=== PATIENT | male | born 1965 | race African-American/Black ===

== ENCOUNTER 2019-09-26 21:54 | Inpatient (IN) | payer SELFPAY ==
[~2019-09-26] VITALS: Ht 172.7 cm; Wt 98.1 kg
[2019-09-26] MEDS ORDERED: SODIUM CHLORIDE 0.9% 1,000 ML IV ONE (22:32)
[2019-09-26] MEDS ORDERED: LABETALOL 5MG/ML SYR 20 MG/4 ML SYRINGE IV ONE (22:45)
[2019-09-26 23:06] LABS: BASOPHILS % 0.6 % (0.0-2.0); EOSINOPHILS % 0.2 % (0.0-5.0); HEMOGLOBIN. 16.8 g/dL (14.0-18.0); LYMPHOCYTES % 29.5 % (20.0-50.0); MEAN CORPUSCULAR HEMOGLOBIN 28.7 pg (28.0-32.0); MEAN CORPUSCULAR VOLUME 83.7 fL (80.0-94.0); MEAN PLATELET VOLUME 8.6 fl (7.4-10.4); MONOCYTES % 13.4 % (2.0-8.0); NEUTROPHILS % 56.3 % (40.0-76.0); PARTIAL THROMBOPLASTIN TIME 26.2 sec (23.4-31.0); PLATELET 290 x1000/uL (130-400); PROTHROMBIN TIME 10.7 sec (9.6-11.0); RED BLOOD CELL COUNT 5.86 mill/uL (4.7-6.1); RED CELL DISTRIBUTION WIDTH 15.7 % (11.6-14.6)
[2019-09-26] MEDS ORDERED: NICARDIPINE 50 MG in SODIUM CHLORIDE 0.9% 230 ML IV STA (23:12)
[2019-09-26] MEDS ORDERED: LEVETIRACETAM 500MG PREMIX 100 ML IV ONE (23:15)
[2019-09-26] MEDS ORDERED: DEXAMETHASONE 10 MG/ML VIAL IV ONE (23:15)
[2019-09-26] MEDS ORDERED: NICARDIPINE 40MG/200ML PREMIX 200 ML IV PRN (23:30)
[2019-09-26 23:43] LABS: CHLORIDE 103 mEq/L (98-107)
[2019-09-26 23:47] LABS: ETHANOL BLOOD 10 mg/dL
[2019-09-27] VITALS (57 sets, daily range): BP systolic 92–155; BP diastolic 57–111
[2019-09-27] MEDS ORDERED: KCL 10MEQ/50ML PREMIX 50 ML IV ONE
[2019-09-27 00:11] LABS: CLARITY URINE CLOUDY (CLEAR); COLOR URINE YELLOW (YELLOW); KETONES URINE NEGATIVE (NEGATIVE); LEUKOCYTE ESTERASE URINE NEGATIVE (NEGATIVE); NITRITE URINE NEGATIVE (NEGATIVE); OCCULT BLOOD URINE 1+ (NEGATIVE); PH URINE 5.5 (4.5-8.0); PROTEIN URINE 1+ (NEGATIVE); SPECIFIC GRAVITY URINE 1.028 (1.005-1.030); UROBILINOGEN URINE 0.2 E.U./dL (0.2-1.0)
[2019-09-27 00:23] LABS: *AMPHETAMINES SCREEN URINE NEGATIVE (NEGATIVE); *BARBITURATES SCREEN URINE NEGATIVE (NEGATIVE); *BENZODIAZEPINES SCREEN URINE NEGATIVE (NEGATIVE)
[2019-09-27 00:24] LABS: *COCAINE SCREEN URINE NEGATIVE (NEGATIVE); CANNABINOID URINE SCREEN NEGATIVE (NEGATIVE); METHADONE URINE SCREEN NEGATIVE (NEGATIVE); OPIATES URINE SCREEN NEGATIVE (NEGATIVE); PHENCYCLIDINE URINE SCREEN NEGATIVE (NEGATIVE)
[2019-09-27] MEDS ORDERED: LORAZEPAM 2MG/ML CPJ IV PRN (03:30)
[2019-09-27] MEDS ORDERED: HYDRALAZINE 20MG/ML VIAL IV PRN (03:30)
[2019-09-27] MEDS ORDERED: ACETAMINOPHEN 650MG SUPP PR PRN (03:30)
[2019-09-27] MEDS ORDERED: ONDANSETRON HCL 4MG/2ML INJ IV PRN (03:30)
[2019-09-27] MEDS: DEXT 5%/0.45% NACL KCL 10MEQ/L 1,000 ML IV SCH ×3 (03:55→17:03)
[2019-09-27] MEDS: DEXAMETHASONE 4MG/ML 1ML VIAL IV SCH ×3 (06:20→17:06)
[2019-09-27] MEDS ORDERED: MORPHINE SULFATE 2 MG/ML CPJ (NOT FOR IM USE) IV PRN (08:00)
[2019-09-27] MEDS ORDERED: NICARDIPINE 100 MG in SODIUM CHLORIDE 0.9% 60 ML IV PRN (08:00)
[2019-09-27] MEDS ORDERED: LEVETIRACETAM 500MG PREMIX 100 ML IV SCH (09:00)
[2019-09-27] MEDS ORDERED: LEVETIRACETAM 500MG PREMIX 100 ML IV ONE (09:00)
[2019-09-27] MEDS: NICARDIPINE 100 MG in SODIUM CHLORIDE 0.9% 60 ML IV PRN ×2 (10:12→17:05)
[2019-09-27] MEDS: LEVETIRACETAM 500MG PREMIX 100 ML IV SCH ×2 (11:43→20:00)
[2019-09-27] MEDS ORDERED: DEXAMETHASONE 4MG/ML 1ML VIAL IV SCH (12:00)
[2019-09-27 12:29] LABS: CHLORIDE 103 mEq/L (98-107)
[2019-09-28] VITALS (51 sets, daily range): BP systolic 91–146; BP diastolic 48–101
[2019-09-28] MEDS: DEXT 5%/0.45% NACL KCL 10MEQ/L 1,000 ML IV SCH ×2 (06:17→19:14)
[2019-09-28] MEDS: DEXAMETHASONE 4MG/ML 1ML VIAL IV SCH ×5 (06:17→23:38)
[2019-09-28 06:37] LABS: BASOPHILS % 0.1 % (0.0-2.0); HEMOGLOBIN. 15.1 g/dL (14.0-18.0); LYMPHOCYTES % 10.3 % (20.0-50.0); MEAN CORPUSCULAR HEMOGLOBIN 28.4 pg (28.0-32.0); MEAN CORPUSCULAR VOLUME 84.7 fL (80.0-94.0); MEAN PLATELET VOLUME 8.2 fl (7.4-10.4); MONOCYTES % 4.1 % (2.0-8.0); NEUTROPHILS % 85.5 % (40.0-76.0); PLATELET 303 x1000/uL (130-400); RED BLOOD CELL COUNT 5.31 mill/uL (4.7-6.1); RED CELL DISTRIBUTION WIDTH 14.8 % (11.6-14.6)
[2019-09-28 08:00] LABS: CHLORIDE 105 mEq/L (98-107)
[2019-09-28] MEDS: LEVETIRACETAM 500MG PREMIX 100 ML IV SCH ×2 (10:08→21:17)
[2019-09-29] VITALS (34 sets, daily range): BP systolic 103–180; BP diastolic 55–106
[2019-09-29] MEDS: DEXAMETHASONE 4MG/ML 1ML VIAL IV SCH ×3 (05:53→17:48)
[2019-09-29] MEDS: LEVETIRACETAM 500MG PREMIX 100 ML IV SCH ×2 (08:54→21:17)
[2019-09-29] MEDS: AMLODIPINE 10MG TABLET PO SCH (11:42)
[2019-09-29] MEDS: HYDRALAZINE HCL 25MG TABLET PO SCH ×2 (13:02→21:41)
[2019-09-29] MEDS: DEXT 5%/0.45% NACL KCL 10MEQ/L 1,000 ML IV SCH (17:48)
[2019-09-30] VITALS: BP 119/60
[2019-09-30] MEDS: DEXAMETHASONE 4MG/ML 1ML VIAL IV SCH ×2 (00:53→05:28)
[2019-09-30] MEDS: DEXT 5%/0.45% NACL KCL 10MEQ/L 1,000 ML IV SCH (00:54)
[2019-09-30 02:00] VITALS: BP 92/56
[2019-09-30 03:51] VITALS: BP 140/49
[2019-09-30] MEDS: HYDRALAZINE HCL 25MG TABLET PO SCH (05:29)
[2019-09-30 08:00] VITALS: BP 161/80
[2019-09-30] MEDS: AMLODIPINE 10MG TABLET PO SCH (08:38)
[2019-09-30] MEDS: LEVETIRACETAM 500MG PREMIX 100 ML IV SCH (08:43)
[2019-09-30 09:54] VITALS: BP 169/96
== END 2019-09-30 16:00 | disposition home or self-care (01) | DRG 44 ==
LOC: ER 21:54 → 5EST 23:54 → ENRESERV 09-27 07:23 → 5EST 09-29 09:28
PROVIDERS: ADMIT Hospitalist; ATTEND Hospitalist
DX: I61.9 Nontraumatic intracerebral hemorrhage, unspecified (principal); G93.40 Encephalopathy, unspecified; E11.9 Type 2 diabetes mellitus without complications; E87.5 Hyperkalemia; I10 Essential (primary) hypertension; Z79.899 Other long term (current) drug therapy
CPT/HCPCS: 36415; 70544; 70553; 71045; 80048; 80053; 80305; 80320; 81003; 82962; 83880; 84484; 85025; 86850; 86900; 93005; 93970; 96365; 97162; 99285; J0360; J1100; J1953; J2270; J3480; J3490; J7030; J7050; G0480